=== PATIENT | male | born 1985 | race Caucasian/White ===

== ENCOUNTER 2017-09-10 09:19 | Observation (INO) | payer OTHER ==
[2017-09-10] VITALS (9 sets, daily range): BP systolic 104–124; BP diastolic 64–86; PULSE 79–104; TEMP 36.9–37.3; O2SAT 95–97; Ht 182.9 cm; Wt 112.7 kg
[~2017-09-10] VITALS: Ht 182.9 cm; Wt 112.7 kg
[2017-09-10] MEDS: LACTATED RINGER'S 1000ML 1,000 ML IV SCH ×2 (09:32→16:23)
[2017-09-10] MEDS ORDERED: PATIENT'S ALLERGY INFO NEEDS ENTERED SCH (09:45)
[2017-09-10] MEDS ORDERED: MoRPHine SULFATE 4 MG/ML 1 ML CARP\\VIAL IV PRN (09:45)
[2017-09-10] MEDS ORDERED: ONDANSETRON INJ 2 MG/ML 2 ML VIAL IV PRN ×2 (09:45→12:30)
[2017-09-10] MEDS ORDERED: MoRPHine SULFATE 2 MG/ML CARP IV PRN (09:45)
[2017-09-10] MEDS ORDERED: LORA1CHW PO (10:39)
[2017-09-10] MEDS ORDERED: CLIN1CAP51 PO (10:39)
[2017-09-10] MEDS ORDERED: MISCCAP80 (10:39)
[2017-09-10 11:23] LABS: BASO % 0.1 %; BASO ABS # 0.01 K/uL (0-0.2); EOS % 0.9 %; EOS ABS # 0.09 K/uL (0-0.5); HEMATOCRIT 40.6 % (42-52); HEMOGLOBIN 14.2 g/dL (14.0-18.0); IG# 0.02 K/uL (0.00-0.02); LYMPH % 26.2 %; LYMPH ABS # 2.71 K/uL (1.2-3.4); MEAN CELL VOLUME 87.7 fL (80-100); MEAN CORPUSCULAR HEMOGLOBIN 30.7 pg (25-34); MEAN PLATELET VOLUME 9.9 fL (7.4-10.4); MONO % 8.1 %; MONO ABS # 0.84 K/uL (0.11-0.59); NEUT % 64.5 %; NEUT ABS # 6.68 K/uL (1.4-6.5); PLATELET COUNT 263 K/uL (130-400); RED CELL DISTRIBUTION WIDTH CV 12.4 % (11.5-14.5); RED CELL DISTRIBUTION WIDTH SD 39.5 fL (36.4-46.3); WHITE BLOOD COUNT 10.35 K/uL (4.8-10.8)
[2017-09-10 11:53] LABS: CALCIUM 8.9 mg/dl (8.5-10.1); CREATININE 1.41 mg/dl (0.60-1.40); POTASSIUM 4.5 mmol/L (3.5-5.1)
[2017-09-10] MEDS: CLINDAMYCIN IV 600 MG in DEXTROSE 5% 50ML 50 ML IV SCH ×2 (12:20→21:08)
[2017-09-10] MEDS ORDERED: ATROPINE SULFATE 0.1 MG/ML 5ML SYR IV PRN (12:30)
[2017-09-10] MEDS ORDERED: EpHEDrine SULFATE INJ 50 MG/ML AMP IV PRN (12:30)
[2017-09-10] MEDS ORDERED: FENTANYL CITRATE INJ 50 MCG/1 ML 2 ML VIAL IV PRN (12:30)
--- NOTE | 2017-09-10 12:42 | History & Physical Bridge Note ---
H&P Re-Evaluation Bridge Note: I have examined the patient, reviewed the History & Physical and in the interval since the performance of the History & Physical I have noted the following changes of clinical significance: No changes noted
[2017-09-10] MEDS ORDERED: MIDAZOLAM HCL 1 MG/ML 2ML VIAL ONE (12:54)
[2017-09-10] MEDS ORDERED: FENTANYL CITRATE INJ 50 MCG/1 ML 2 ML VIAL ONE ×2 (12:55→13:17)
[2017-09-10] MEDS ORDERED: BUPIVACAINE 0.5 % 5 MG/1 ML PF 10ML VIAL ONE (12:56)
[2017-09-10] MEDS ORDERED: LIDOCAINE HCL 2% 2 ML VIAL (20MG/ML) ONE (13:16)
[2017-09-10] MEDS ORDERED: PROPOFOL IV EMULSION 10 MG/ML 20 ML VIAL ONE (13:16)
[2017-09-10] MEDS ORDERED: DEXAMETHASONE SOD INJ 4 MG/ML VIAL ONE (13:16)
[2017-09-10] MEDS ORDERED: ONDANSETRON INJ 2 MG/ML 2 ML VIAL ONE (13:16)
--- NOTE | 2017-09-10 13:58 | [facility] Post Operative Brief Note ---
Immediate Operative Summary Operative Date Sep 10, 2017. Pre-Operative Diagnosis Left groin abscess Post-Operative Diagnosis Same Procedure(s) Performed incision and drainage left groin abscess Surgeon Dr Heath Broadcast Producer Surgeon(s) None Estimated Blood Loss 2ml Findings Consistent with Post-Op Diagnosis Specimens Culture#1 left groin abscess for gram stain, aerobic and anaerobic A. left groin skin with underlying abscess Drains None Anesthesia Type None Complication(s) none Disposition Accompanied Pt To Recover: no Disposition: Recovery Room / PACU
--- NOTE | 2017-09-10 14:04 | [facility] Operative Report ---
Operative Report Operative Date Sep 10, 2017. Pre-Operative Diagnosis Left groin abscess Post-Operative Diagnosis Left groin abscess Procedure(s) Performed Incision and drainage of left groin abscess Surgeon Dr Heath Options Trader Surgeon(s) None Estimated Blood Loss 2ml Findings 30 cc of purulent drainage mixed with blood expressed, culture sent. Hemostasis achieved, irrigated, dressing placed. Specimens Culture#1 left groin abscess for gram stain, aerobic and anaerobic A. left groin skin with underlying abscess Drains None Anesthesia General Complication(s) None Disposition Recovery Room / PACU Indications 32-year-old male presented to the clinic this morning with large left groin abscess, plan for incision and drainage of left groin abscess. The risks of the procedure were discussed, all questions were answered, and the patient agreed to proceed with surgery as planned. Description of Procedure The patient was properly identified, consented, and taken to the operating room where he was placed in the supine position. Laryngeal mask anesthesia was induced. SCDs and a safety belt were placed. Preoperative antibiotics were administered. The patient's left groin was prepped and draped in the standard sterile fashion. Surgical timeout was performed and all parties were in agreement that this was the correct patient and procedure to be performed and we continued as planned. An elliptical incision was made overlying the abscess and deepened down through the subcutaneous tissue with electrocautery. The abscess cavity was entered and approximately 30 cc of purulent bloody drainage was expressed. Cultures were sent. The wound was explored and there was no necrosis visible, fascial planes appear to be intact. The wound was irrigated and hemostasis was achieved. The wound was packed with saline soaked Kerlix. Sterile dressing was applied. The patient was extubated in the operating room and taken to the PACU where he recovered without apparent incident. All sponge, instrument and needle counts were correct at the conclusion of the procedure. The patient tolerated the procedure well. I attest to the content of the Intraoperative Record and any orders documented therein. Any exceptions are noted below.
[2017-09-10] MEDS ORDERED: IV FLUIDS COMPLETED PRN (14:45)
--- NOTE | 2017-09-10 15:01 | Anesthesiology Progress Note ---
Anesthesia Post Op Note Date & Time Sep 10, 2017 at 15:01 Vital Signs Pain Intensity: 3 Vital Signs Past 12 Hours Date Time Temp Pulse Resp B/P (MAP) Pulse Ox O2 Delivery O2 Flow Rate FiO2 09/10/17 14:30 76 18 113/68 96 Room Air 09/10/17 14:20 36.4 79 19 115/71 96 Room Air 09/10/17 14:10 82 19 103/73 100 Room Air 09/10/17 14:00 79 20 109/71 100 Oxymask 10 09/10/17 13:52 36.6 82 13 103/73 100 Oxymask 10 09/10/17 10:21 Room Air 09/10/17 10:08 36.9 97 18 124/86 (99) 96 Room Air Notes Mental Status: alert / awake / arousable, participated in evaluation Pt Amnestic to Procedure: Yes Nausea / Vomiting: adequately controlled Pain: adequately controlled Airway Patency, RR, SpO2: stable & adequate BP & HR: stable & adequate Hydration State: stable & adequate Anesthetic Complications: no major complications apparent
[2017-09-10] MEDS ORDERED: NURSING VERBAL MED ORDER ONE (16:15)
[2017-09-11] MEDS: LACTATED RINGER'S 1000ML 1,000 ML IV SCH ×3 (03:30→20:59)
[2017-09-11] MEDS: CLINDAMYCIN IV 600 MG in DEXTROSE 5% 50ML 50 ML IV SCH ×3 (03:38→20:59)
[2017-09-11 03:53] VITALS: BP 111/73; PULSE 81; TEMP 36.9; O2SAT 98
[2017-09-11 07:30] LABS: BASO % 0.2 %; BASO ABS # 0.03 K/uL (0-0.2); EOS % 0.4 %; EOS ABS # 0.05 K/uL (0-0.5); HEMATOCRIT 37.4 % (42-52); HEMOGLOBIN 13.3 g/dL (14.0-18.0); IG# 0.02 K/uL (0.00-0.02); LYMPH % 29.6 %; MEAN CELL VOLUME 87.6 fL (80-100); MEAN CORPUSCULAR HEMOGLOBIN 31.1 pg (25-34); MEAN CORPUSCULAR HGB CONC 35.6 g/dl (32-36); MEAN PLATELET VOLUME 9.7 fL (7.4-10.4); MONO % 8.1 %; MONO ABS # 0.99 K/uL (0.11-0.59); NEUT % 61.5 %; NEUT ABS # 7.49 K/uL (1.4-6.5); PLATELET COUNT 263 K/uL (130-400); RED CELL DISTRIBUTION WIDTH CV 12.1 % (11.5-14.5); RED CELL DISTRIBUTION WIDTH SD 38.8 fL (36.4-46.3); WHITE BLOOD COUNT 12.18 K/uL (4.8-10.8)
--- NOTE | 2017-09-11 07:31 | Surgery Progress Note ---
Surgery Progress Note Date of Service Sep 11, 2017. Subjective Post OP Day: 1 + feeling well, + flatus, + pain controlled, + diet (Tolerating regular diet), No complaints, No bowel movement, No nausea, No vomiting Objective Vital Signs: Date Time Temp Pulse Resp B/P (MAP) Pulse Ox O2 Delivery O2 Flow Rate FiO2 09/11/17 03:53 36.9 81 16 111/73 (86) 98 Room Air 09/10/17 23:55 Room Air 09/10/17 23:20 36.9 103 17 116/76 (89) 95 Room Air 09/10/17 19:18 37.2 104 18 122/78 (93) 95 Room Air 09/10/17 18:00 37.1 91 18 120/84 (96) 97 09/10/17 17:10 37.3 97 18 117/75 (89) 97 Room Air 09/10/17 16:02 37.1 80 18 109/74 (86) 95 Room Air 09/10/17 15:45 96 Room Air 09/10/17 15:34 37.0 79 18 104/64 (77) 96 Room Air 09/10/17 15:00 95 Room Air 09/10/17 15:00 37.0 86 18 111/74 (86) 95 Room Air 09/10/17 14:30 76 18 113/68 96 Room Air 09/10/17 14:20 36.4 79 19 115/71 96 Room Air 09/10/17 14:10 82 19 103/73 100 Room Air 09/10/17 14:00 79 20 109/71 100 Oxymask 10 09/10/17 13:52 36.6 82 13 103/73 100 Oxymask 10 09/10/17 10:21 Room Air 09/10/17 10:08 36.9 97 18 124/86 (99) 96 Room Air General Appearance: WD/WN, no apparent distress Head: normocephalic, atraumatic Respiratory/Chest: no respiratory distress Abdomen: non tender Incision(s): findings (Left groin open wound s/p I&D stable with packing a dressing in place. no drainage, erythema or swelling noted.) Laboratory Results: Results Past 24 Hours Test 09/10/17 11:02 09/11/17 07:20 Range/Units White Blood Count 10.35 4.8-10.8 K/uL Red Blood Count 4.63 4.7-6.1 M/uL Hemoglobin 14.2 14.0-18.0 g/dL Hematocrit 40.6 42-52 % Mean Corpuscular Volume 87.7 80-100 fL Mean Corpuscular Hemoglobin 30.7 25-34 pg Mean Corpuscular Hemoglobin Concent 35.0 32-36 g/dl Platelet Count 263 130-400 K/uL Mean Platelet Volume 9.9 7.4-10.4 fL Neutrophils (%) (Auto) 64.5 % Lymphocytes (%) (Auto) 26.2 % Monocytes (%) (Auto) 8.1 % Eosinophils (%) (Auto) 0.9 % Basophils (%) (Auto) 0.1 % Neutrophils # (Auto) 6.68 1.4-6.5 K/uL Lymphocytes # (Auto) 2.71 1.2-3.4 K/uL Monocytes # (Auto) 0.84 0.11-0.59 K/uL Eosinophils # (Auto) 0.09 0-0.5 K/uL Basophils # (Auto) 0.01 0-0.2 K/uL RDW Standard Deviation 39.5 36.4-46.3 fL RDW Coefficient of Variation 12.4 11.5-14.5 % Immature Granulocyte % (Auto) 0.2 % Immature Granulocyte # (Auto) 0.02 0.00-0.02 K/uL Sodium Level 136 136-145 mmol/L Potassium Level 4.5 3.5-5.1 mmol/L Chloride Level 105 98-107 mmol/L Carbon Dioxide Level 25 21-32 mmol/L Anion Gap 6.0 3-11 mmol/L Blood Urea Nitrogen 15 7-18 mg/dl Creatinine 1.41 0.60-1.40 mg/dl Est Creatinine Clear Calc Drug Dose 97.5 ml/min Estimated GFR () 75.9 Estimated GFR (Non- 65.4 BUN/Creatinine Ratio 10.4 10-20 Random Glucose 92 70-99 mg/dl Calcium Level 8.9 8.5-10.1 mg/dl Microbiology Results 09/10/17 Gram Stain, Received Pending 09/10/17 Bacterial Culture, Received Pending Assessment & Plan POD #1 s/p I&D Left groin abscess Doing well, some tenderness at incision site (expected). Tolerating regular diet, no N/V. Urinating without issue. Wound care consult - recs regarding wound vac. AM labs pending - continue IV Cleocin Possible d/c today if he continues to do well. [facility] surgery covering this weekend.
[2017-09-11] MEDS ORDERED: OXYC-57 PO (07:33)
[2017-09-11] MEDS ORDERED: OXYCODONE/ACETAMINOPHEN 5-325 TAB PO PRN ×2 (07:45)
[2017-09-11 08:01] LABS: CALCIUM 8.2 mg/dl (8.5-10.1); CREATININE 1.13 mg/dl (0.60-1.40); POTASSIUM 3.9 mmol/L (3.5-5.1)
[2017-09-11 08:05] VITALS: BP 114/79; PULSE 81; TEMP 36.6; O2SAT 97
[2017-09-11] MEDS: MoRPHine SULFATE 2 MG/ML CARP IV PRN ×2 (10:58→11:44)
--- NOTE | 2017-09-11 11:35 | Discharge Instructions ---
Discharge Instructions Date of Service Sep 11, 2017. Admission Reason for Admission: Abcess Left Groin Discharge Discharge Diagnosis / Problem: drainage of groin abscess Discharge Goals Goal(s): Decrease discomfort Activity Recommendations Activity Limitations: as noted below Driving or Machine Use: resume 1 day after discharge . Instructions / Follow-Up Instructions / Follow-Up Dr. Heath in 1 week, call [phone] to schedule Current Hospital Diet Patient's current hospital diet: Regular Diet Discharge Diet Recommended Diet: Regular Diet Procedures Procedures Performed: incision and drainage left groin abscess Pending Studies Studies pending at discharge: no Medical Emergencies . Who to Call and When: Medical Emergencies: If at any time you feel your situation is an emergency, please call 911 immediately. . Non-Emergent Contact Non-Emergency issues call your: Surgeon Call Non-Emergent contact if: you have a fever, temperature is above 101.5, your pain is not controlled, wound has increased redness, you have any medication questions . "Provider Documentation" section prepared by Gamaliel Garcia. . [place] Drug Monitoring Program Search Results: no issues identified
[2017-09-11 12:33] VITALS: BP 109/74; PULSE 81; TEMP 36.9; O2SAT 97
[2017-09-11 16:00] VITALS: O2SAT 97
[2017-09-11 23:06] VITALS: BP 122/79; PULSE 89; TEMP 37.1; O2SAT 94
[2017-09-12] MEDS: CLINDAMYCIN IV 600 MG in DEXTROSE 5% 50ML 50 ML IV SCH (03:44)
[2017-09-12 07:41] VITALS: BP 112/80; PULSE 79; TEMP 36.8; O2SAT 96
[2017-09-12] MEDS: LACTATED RINGER'S 1000ML 1,000 ML IV SCH (07:54)
--- NOTE | 2017-09-12 09:36 | Surgery Progress Note ---
Surgery Progress Note Date of Service Sep 12, 2017. Subjective Post OP Day: 2 + feeling well, No nausea, No vomiting Very little pain Objective Vital Signs: Date Time Temp Pulse Resp B/P (MAP) Pulse Ox O2 Delivery O2 Flow Rate FiO2 09/12/17 07:41 36.8 79 16 112/80 (91) 96 Room Air 09/11/17 23:53 Room Air 09/11/17 23:06 37.1 89 16 122/79 (93) 94 Room Air 09/11/17 16:00 97 Room Air 09/11/17 12:33 36.9 81 18 109/74 (86) 97 Room Air Extremities: + pertinent finding (Wound vac in place left superior thigh. no surrounding erythema) Assessment & Plan S/P I&D of abscess left thigh Much improved, erythema resolved Plan for D/C when home wound vac available with follow up care in wound center
[2017-09-12 10:05] VITALS: BP 112/80; PULSE 79; TEMP 36.8; O2SAT 96
[2017-09-14] MEDS ORDERED: CIPR1TAB11 PO (09:06)
--- NOTE | 2017-09-14 09:43 | Discharge Summary ---
Discharge Summary Date of Service Sep 14, 2017. Admission Date/Reason Sep 10, 2017 at 09:38 Abcess Left Groin. Discharge Date/Disposition Sep 12, 2017 Home Diagnosis Principal Diagnosis: Left groin abscess Procedure(s) Performed Incision and drainage of left groin abscess Medication Reconciliation New Medications: Oxycodone/Acetaminophen 5MG/325MG (Percocet 5MG/325MG) Tab 1-2 TABLETS PO Q4H PRN for Pain, #30 TAB Continued Medications: Clindamycin HCl (Clindamycin HCl) 150 Mg Cap 3 CAP PO QID for 10 Days, #120 CAP Loratadine (Claritin) 5 Mg Chw 5 MG PO Probiotic Product (Probiotic) 1 Cap Cap Referrals Follow up Referrals: Surgery Referral - Within 1-2 Weeks with Syd Heath, DO Admission Physical Exam As per Admitting History & Physical. Hospital Course 32 y/o male direct admission from the office for left groin abscess and taken to the OR that afternoon for incision and drainage. IV clindamycin was continued during admission. Packing was removed on POD 1 by wound care nurse and wound vac was applied. Arrangements were made for home wound vac and follow- up at [facility]. He was stable for discharge on POD 2 once these arrangements were finalized. Discharge Instructions Please refer to the electronic Patient Visit Report (Discharge Instructions) for additional information.
[2017-09-14] MEDS ORDERED: CIPR250T3 PO (11:40)
== END 2017-09-12 11:28 | disposition home or self-care (01) ==
LOC: C.MSW 09:38
PROVIDERS: ADMIT Surgery; ATTEND Surgery
DX: L02.214 Cutaneous abscess of groin (principal); L03.314 Cellulitis of groin; E66.9 Obesity, unspecified; Z68.34 Body mass index [BMI] 34.0-34.9, adult